=== PATIENT | female | born 1985 | race Caucasian/White ===

== ENCOUNTER 2016-12-27 09:41 | Inpatient (IN) ==
[2016-12-27] MEDS ORDERED: REGLAN PO ONE (20:05)
[2016-12-27] MEDS ORDERED: BRETHINE SUBQ PRN (20:05)
[2016-12-27] MEDS ORDERED: PEPCID PO ONE (20:05)
[2016-12-27] MEDS ORDERED: ZOFRAN IV PRN (20:05)
[2016-12-27] MEDS ORDERED: PEPCID PO PRN (20:05)
[2016-12-27] MEDS ORDERED: KEFZOL 1 GM/D5W 1 GM/50 ML IVPB IV PRN (20:05)
[2016-12-27] MEDS ORDERED: STADOL IV PRN ×2 (20:05)
[2016-12-27] MEDS ORDERED: TYLENOL PO PRN (20:05)
[2016-12-27] MEDS ORDERED: LR 1,000 ML IV ONE (20:05)
[2016-12-27] MEDS ORDERED: PEPCID IV PRN (20:05)
[2016-12-27] MEDS ORDERED: AMBIEN PO PRN (20:05)
[2016-12-27 22:18] LABS: MANUAL DIFF NEEDED? NO
[2016-12-27 22:19] LABS: BASO% 0.1 % (0.0-0.8); EOS# 0.12 X1000 (0.0-0.7); HEMATOCRIT 31.3 % (37.0-47.0); HEMOGLOBIN 10.7 g/dL (12.0-16.0); IMM GRAN# 0.07 X1000 (0.0-0.04); IMM GRAN% 0.6 % (0.0-0.5); LYMPH# 2.69 X1000 (1.2-3.4); MCH 31.7 PG (27-31); MCHC 34.2 g/dL (33-37); MCV 92.6 FL (81-99); MONO# 0.91 X1000 (0.11-0.59); MONO% 7.4 % (1.7-9.3); NEUT% 68.9 % (42.2-75.2); PLT 144 X1000 (130-400); RBC 3.38 XMIL (4.2-5.4)
[2016-12-27 22:41] LABS: UR AMPHETAMINES QUAL NONE DETECTED (NONE DETECT); UR BARBITUATES QUAL NONE DETECTED (NONE DETECT); UR BENZODIAZEPIN QUAL NONE DETECTED (NONE DETECT); UR CANNABINOIDS QUAL NONE DETECTED (NONE DETECT); UR COCAINE QUAL NONE DETECTED (NONE DETECT); UR MDMA QUAL NONE DETECTED (NONE DETECT); UR METHADONE QUAL NONE DETECTED (NONE DETECT); UR METHAMPHETAMINE QUAL NONE DETECTED (NONE DETECT); UR OPIATES QUAL NONE DETECTED (NONE DETECT); UR OXYCODONE QUAL NONE DETECTED (NONE DETECT); UR PCP QUAL NONE DETECTED (NONE DETECT); UR TCA QUAL NONE DETECTED (NONE DETECT)
[2016-12-27] MEDS ORDERED: CYTOTEC PO ONE (23:00)
[2016-12-28] MEDS: STADOL IV PRN ×3 (00:24→06:22)
[2016-12-28] MEDS ORDERED: PITOCIN 30 UNITS/LR 30 UNITS/500 ML IV.SOLN IV SCH (07:00)
[2016-12-28] MEDS ORDERED: FENTANYL-BUPIV-NS 2 MCG-0.1% 200 ML EPIDURAL PRN (07:38)
[2016-12-28] MEDS ORDERED: XYLOCAINE-MPF 1% INJ ONE (07:45)
[2016-12-28] MEDS ORDERED: SENSORCAINE-MPF 0.5%/EPI 1:200,000 ONE (12:28)
[2016-12-28] MEDS ORDERED: XYLOCAINE-MPF 1% ONE (14:03)
[2016-12-28] MEDS ORDERED: MINERAL OIL ONE (14:04)
[2016-12-28] MEDS ORDERED: LR 1,000 ML IV SCH (15:00)
[2016-12-28] MEDS ORDERED: METHERGINE IM ONE (15:45)
[2016-12-28] MEDS ORDERED: METHERGINE ONE (15:48)
[2016-12-28] MEDS ORDERED: MINERAL OIL PO PRN (16:34)
[2016-12-28] MEDS ORDERED: CYTOTEC PO PRN (16:34)
[2016-12-28] MEDS ORDERED: PITOCIN 20 UNITS/LR 20 UNITS/1,000 ML IV.SOLN IV SCH (16:34)
[2016-12-28] MEDS ORDERED: PITOCIN 30 UNITS/LR 30 UNITS/500 ML IV.SOLN IV ONE (16:34)
[2016-12-28] MEDS ORDERED: M-M-R II VACCINE SUBQ ONE (16:34)
[2016-12-28] MEDS ORDERED: NORCO-5 PO PRN (16:34)
[2016-12-28] MEDS ORDERED: PITOCIN IM PRN (16:34)
[2016-12-28] MEDS ORDERED: BOOSTRIX VACCINE IM ONE (16:34)
[2016-12-28] MEDS ORDERED: PERCOCET-5 PO PRN (16:34)
[2016-12-28] MEDS ORDERED: BENADRYL PO PRN (16:34)
[2016-12-28] MEDS ORDERED: HYDROXYZINE IM PRN (16:34)
[2016-12-28] MEDS ORDERED: AMBIEN PO PRN (16:34)
[2016-12-28] MEDS ORDERED: BENADRYL IV PRN (16:34)
[2016-12-28] MEDS ORDERED: HYDROXYZINE PO PRN (16:34)
[2016-12-28] MEDS ORDERED: XYLOCAINE-MPF 1% INJ PRN (16:34)
[2016-12-28] MEDS ORDERED: PERI MEDS (DERMOPLAST/NUPERCAINAL/TUCKS) MISC PRN (16:34)
[2016-12-28] MEDS ORDERED: METHERGINE PO SCH (17:00)
[2016-12-28] MEDS: PERCOCET-10 PO PRN ×2 (17:19→20:58)
[2016-12-28] MEDS: MOTRIN PO PRN (17:20)
[2016-12-28] MEDS: PERICOLACE PO SCH (20:59)
--- NOTE | 2016-12-28 22:09 | OPERATIVE NOTE ---
PROCEDURE DATE: 12/28/2016 DELIVERING PHYSICIAN: Abrahan Maldonado MD TYPE OF DELIVERY: Spontaneous controlled vaginal delivery. ANESTHESIA: Epidural. FINDINGS: At 15:40, a 7 pound 5 ounce female infant was delivered in occiput anterior presentation. Apgars were 9 at 1 minute and 10 at 5 minutes. SUMMARY: Misty Portillo is a 31-year-old 4, para 1-0-2-1 at 39-2/7 weeks gestation. Her blood type is O positive. Rubella immune. Hepatitis B surface antigen, HIV, and group B strep is negative. The patient has been on Suboxone throughout the . She was admitted last night for Cytotec induction due to her strong desire for induction of labor. She received 1 dose of Cytotec. This morning she was 1 cm dilated, 50% effaced, and -1 station. She had spontaneous rupture of membranes revealing clear fluid. IV Pitocin was begun. She received an epidural for labor pain management. She progressed through labor without signs of distress or dystocia. She became complete and began pushing. Once , she was placed in the dorsal lithotomy position. The perineum was prepped and draped in usual fashion. A midline episiotomy was performed and spontaneous controlled vaginal delivery occurred. There was a nuchal cord. This was reduced. The shoulders and body delivered without complications. The oropharynx was bulb suctioned. The cord was clamped and cut. The infant was handed to nurses for further care and evaluation. Cord blood was obtained. Placenta was spontaneously delivered and was intact. There were no cervical lacerations. There was a second-degree midline episiotomy tear that was repaired in layers using 2-0 Vicryl suture. The patient had atony. This responded to IV Pitocin, fundal massage and IM Methergine. Blood loss was approximately 400 mL. Patient remained in the LDR recovering without difficulty. I will continue p.o. methargen for the next 24 hours. cc: Abrahan Maldonado MD
[2016-12-29] MEDS: PERCOCET-10 PO PRN ×2 (00:03→07:20)
[2016-12-29] MEDS: METHERGINE PO SCH ×2 (01:03→09:05)
[2016-12-29] MEDS: MOTRIN PO PRN ×3 (01:03→22:16)
[2016-12-29 06:02] LABS: HEMATOCRIT 28.1 % (37.0-47.0); HEMOGLOBIN 9.5 g/dL (12.0-16.0); MCH 31.8 PG (27-31); MCHC 33.8 g/dL (33-37); MPV 12.7 FL (7.4-10.4); RBC 2.99 XMIL (4.2-5.4)
[2016-12-29] MEDS ORDERED: SUBOXONE 2 MG/0.5 MG SL SCH (09:00)
[2016-12-29] MEDS: SUBUTEX SL SCH (09:05)
[2016-12-29] MEDS: PRECARE PO SCH (09:05)
[2016-12-29] MEDS: CYTOTEC PO SCH (10:55)
[2016-12-29] MEDS ORDERED: PNEUMOVAX 23 IM ONE (11:08)
[2016-12-29] MEDS: NORCO-10 PO PRN ×3 (11:24→22:17)
[2016-12-29] MEDS: PERICOLACE PO SCH (20:37)
[2016-12-30] MEDS: PERCOCET-10 PO PRN ×2 (04:35→09:45)
[2016-12-30 07:52] VITALS: BP 99/60
[2016-12-30] MEDS: SUBUTEX SL SCH (09:45)
[2016-12-30] MEDS: PRECARE PO SCH (09:45)
== END 2016-12-30 11:55 | disposition home or self-care (01) ==
LOC: P.LD 19:54 → P.WC 12-29 10:58
PROVIDERS: ADMIT Obstetrics & Gynecology; ATTEND Obstetrics & Gynecology